=== PATIENT | female | born 1985 | race Caucasian/White ===

== ENCOUNTER 2016-11-06 16:16 | Emergency (ER) | payer SELFPAY ==
[~2016-11-06] VITALS: Ht 157.5 cm; Wt 82.0 kg
[2016-11-06 16:29] VITALS: Ht 157.5 cm; Wt 82.0 kg
--- NOTE | 2016-11-06 18:07 | RADRPT ---
PROCEDURE: Left breast ultrasound. CLINICAL INDICATION: Left breast pain. TECHNIQUE: High-resolution sonography of the left breast was performed in the axial and sagittal p lanes. COMPARISON: No prior study is available for comparison. FINDINGS: There is no cystic or solid mass. Normal breast parenchyma is present. IMPRESSION: 1. Normal left breast ultrasound. 2. Any further management regarding any breast symptoms should be based upon clinical grounds. RPTAT: QQ .Jah Stevenson MD, MD Date Time Electronically viewed and signed by .Jah Stevenson MD, MD on 11/06/2016 18:07 .R/
[2016-11-06] MEDS ORDERED: IBUP-1542 PO (18:33)
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
[2016-11-06 18:43] VITALS: BP 118/70; PULSE 89; RESP 18; TEMP 98.2
== END 2016-11-06 18:43 | disposition home or self-care (01) ==
LOC: FTE 16:16
DX: N64.4 Mastodynia (principal)
CPT/HCPCS: 76642